=== PATIENT | female | born 1980 | race Caucasian/White ===

== ENCOUNTER 2019-02-11 | Inpatient (IN) | payer OTHER ==
[~2019-02-11] VITALS: Ht 162.6 cm; Wt 81.7 kg
[2019-02-11 02:23] VITALS: Ht 162.6 cm; Wt 81.7 kg
[2019-02-11 03:07] VITALS: BP 137/73; PULSE 77; RESP 18
[2019-02-11] MEDS ORDERED: ACETAMINOPHEN 325 MG TAB PO PRN (04:30)
[2019-02-11] MEDS ORDERED: ONDANSETRON 4 MG INJ IV PRN (04:30)
[2019-02-11] MEDS ORDERED: morphine 2 MG INJ IV PRN (04:30)
[2019-02-11] MEDS: DEXTROSE 5%-0.45% NACL 1,000 ML IV SCH ×3 (05:19→21:59)
[2019-02-11] MEDS: PANTOPRAZOLE 40 MG INJ IV SCH (05:25)
[2019-02-11] MEDS: CEFTRIAXONE 1 GM/50 ML (PMX) 50 ML IVPB SCH (05:25)
[2019-02-11 07:36] VITALS: BP 114/64; PULSE 70; RESP 16
--- NOTE | 2019-02-11 13:56 | QN ---
Documentation Comment seen and examined JESSIE VACA MD Feb 11, 2019 13:56
--- NOTE | 2019-02-11 14:15 | CONS ---
Assessment/Plan Assessment/Plan Hospital Course (Demo Recall) Summary Assessment and Plan: Assessment: Upper abdominal pain -R/o acalculous cholecystitis versus PUD versus gastritis versus other Abnormal UA- urine cx pending Plan: HIDA scan pending NPO after 0800 02/12/19 EGD 02/12/19 Endoscopy - risks/benefits/alternatives/indications of procedure and s edation/anesthesia discussed with patient who states understanding and gives informed consent to proceed. Continue PPI therapy HCG- negative on transfer paperwork Patient seen in collaboration with Dr. Hernandez CC: EASTON HERNANDEZ MD ; Consultation Date/Type/Reason Admit Date/Time Feb 11, 2019 at 02:07 Date of Consultation: Feb 11, 2019 Type of Consult GI Reason for Consultation upper abdominal pain Date/Time of Note DATE: 02/11/19 TIME: 14:03 Hx of Present Illness This is a 38 year old primarily Chinese-speaking female with PMH of H.pylori s/p treatment x3, who presented to [facility] with complaints of upper abdominal pain times 4 days Terry to [facility] for insurance reasons and at [facility] patient did have an abdominal ultrasound showing no gallstones identified, mild gallbladder wall thickening, pericholecystic fluid and positive sonographic Garcia sign could suggest an acalculous cholecystitis, no significant findings on CBC or CMP. Time evaluation patient denies nausea/vomiting she complains of upper abdominal pain worse with palpation she also notes pain is worse after eating not improved by anything in particular. She denies hematemesis, hematochezia, melena, constip ation, or diarrhea. Despite being treated for H. pylori multiple occasions patient states she has never had an upper endoscopy. Review of Systems: A 12 system, review was conducted and is negative except as noted in the HPI or here. Past Medical History Medications Current Medications Pantoprazole (Protonix Iv) 40 mg DAILY@06 IV Last administered on 02/11/19at 05:25; Admin Dose 40 MG; Start 02/11/19 at 06:00 Ceftriaxone Sodium 50 ml @ 100 mls/hr Q24H IVPB Last administered on 02/11/19at 05:25; Admin Dose 100 MLS/HR; Start 02/11/19 at 06:00 Acetaminophen (Tylenol Tab) 650 mg Q6H PRN PO MILD PAIN(1-3)OR ELEVATED TEMP; Start 02/11/19 at 04:30 Ondansetron HCl (Zofran Inj) 4 mg Q4H PRN IV NAUSEA AND/OR VOMITING; Start 02/11/19 at 04:30 Morphine Sulfate (morphine) 2 mg Q6 PRN IV SEVERE PAIN LEVEL 7-10; Start 02/11/19 at 04:30 Dextrose/Sodium Chloride 1,000 ml @ 70 mls/hr [id number] IV Last administered on 02/11/19at 05:19; Admin Dose 70 MLS/HR; Start 02/11/19 at 04:30 Allergies: Coded Allergies: No Known Allergies (Verified Allergy, Unknown, 02/11/19) Social History Smoking Status: Never smoker Exam/Review of Systems Exam Vitals Vital Signs Date Temp Pulse Resp B/P (MAP) Pulse Ox O2 O2 Flow FiO2 Time Delivery Rate 02/11/19 98.4 70 16 114/64 99 07:36 (81) Constitutional: alert, oriented Psych: no complaints, nl mood/affect Head: normocephalic, atraumatic Eyes: nl conjunctiva ENMT: nl external ears & nose, nl lips & teeth Neck: supple, non-tender Respiratory: clear to auscultation, normal air movement Cardiovascular: regular rate and rhythm, nl pulses Gastrointestinal: soft, bowel sounds, tender (upper abd) Musculoskeletal: nl extremities to inspection Extremities: normal pulses Skin: nl turgor Results Result Diagram: 02/11/19 0750 02/11/19 0750 Results 24hrs Laboratory Tests Test 02/11/19 07:50 White Blood Count 7.4 Red Blood Count 4.25 Hemoglobin 12.6 Hematocrit 37.8 Mean Corpuscular Volume 88.9 Mean Corpuscular Hemoglobin 29.6 Mean Corpuscular Hemoglobin Concent 33.3 Red Cell Distribution Width 13.2 Platelet Count 303 Mean Platelet Volume 10.5 H Immature Granulocytes % 0.300 Neutrophils % 56.0 Lymphocytes % 32.3 Monocytes % 8.6 Eosinophils % 2.0 Basophils % 0.8 Nucleated Red Blood Cells % 0.0 Immature Granulocytes # 0.020 Neutrophils # 4.2 Lymphocytes # 2.4 Monocytes # 0.6 Eosinophils # 0.2 Basophils # 0.1 Nucleated Red Blood Cells # 0.0 Sodium Level 144 Potassium Level 3.8 Chloride Level 108 Carbon Dioxide Level 27 Anion Gap 9 Blood Urea Nitrogen 8 Creatinine 0.53 Est Glomerular Filtrat Rate mL/min > 60 Glucose Level 105 Calcium Level 8.7 Total Bilirubin 0.4 Direct Bilirubin 0.00 Indirect Bilirubin 0.4 Aspartate Amino Transf (AST/SGOT) 19 Alanine Aminotransferase (ALT/SGPT) 18 Alkaline Phosphatase 62 Total Protein 7.2 Albumin 3.9 Globulin 3.30 H Albumin/Globulin Ratio 1.18 Medications Medication Current Medications Pantoprazole (Protonix Iv) 40 mg DAILY@06 IV Last administered on 02/11/19at 05 :25; Admin Dose 40 MG; Start 02/11/19 at 06:00 Ceftriaxone Sodium 50 ml @ 100 mls/hr Q24H IVPB Last administered on 02/11/19at 05:25; Admin Dose 100 MLS/HR; Start 02/11/19 at 06:00 Acetaminophen (Tylenol Tab) 650 mg Q6H PRN PO MILD PAIN(1-3)OR ELEVATED TEMP; Start 02/11/19 at 04:30 Ondansetron HCl (Zofran Inj) 4 mg Q4H PRN IV NAUSEA AND/OR VOMITING; Start 02/11/19 at 04:30 Morphine Sulfate (morphine) 2 mg Q6 PRN IV SEVERE PAIN LEVEL 7-10; Start 02/11/19 at 04:30 Dextrose/Sodium Chloride 1,000 ml @ 70 mls/hr [id number] IV Last administered on 02/11/19at 05:19; Admin Dose 70 MLS/HR; Start 02/11/19 at 04:30 ALIE PINEDA Feb 11, 2019 14:13
[2019-02-11 14:26] VITALS: BP 133/79; PULSE 79; RESP 16
--- NOTE | 2019-02-11 14:36 | HP ---
DATE OF ADMISSION: 02/11/2019 CHIEF COMPLAINT: Abdominal pain. HISTORY OF PRESENT ILLNESS: A 38-year-old female with a past medical history of Helicobacter pylori infection x3 for the last few years. The patient said that she was treated in the past 3 times. The patient had blood test, never had endoscopy. The patient said she came to the Emergency Department at [facility] since she was having right upper quadrant epigastric pain for the last 5 days. It was burning in nature, does not have any association with food. Denied any episodes of nausea o r vomiting. Denied any hematemesis, any melena, any bright red per rectum. The patient had vital si gns there, showed blood pressure 149/80. LFTs were within normal limit. White count was within norm al limits. The patient had a right upper quadrant ultrasound that showed a positive Garcia sign with gallbladder wall thickening. Patient was transferred due to acute cholecystitis. Patient also foun d to have UTI with a positive UA, however the patient is currently on , the patient denies dysur ia, any urgency, frequency. PAST MEDICAL HISTORY: History of Helicobacter pylori, treated x3 in the past. ALLERGIES: None. PAST SURGICAL HISTORY: None. MEDICATIONS: Taken at home-none. SOCIAL HISTORY: Denies any history of smoking, alcohol or any drug use. REVIEW OF SYSTEMS: The patient complained of right upper quadrant epigastric pain for the last 3 to 4 days. Denied any nausea, vomiting. Denied any hematemesis, any melena, any bright red blood per r ectum. Denies any diarrhea. Denies any fevers and chills. Denied any headache, any blurry vision, denied any focal neurological deficit. Denied any urinary symptoms. PHYSICAL EXAMINATION: VITAL SIGNS: Currently, blood pressure 114/64, afebrile, heart rate 70, saturating 99%. GENERAL: The patient is awake, alert, oriented, does not appear in acute distress. HEENT: Pupils equal, round, react to light. No scleral icterus. NECK: Supple, no JVD. HEART: Regular rate and rhythm. LUNGS: Clear to auscultate bilaterally. ABDOMEN: Some very mild tenderness present in the right upper quadrant region. EXTREMITIES: No clubbing, cyanosis, or edema. LABORATORY DATA: Shows BMP within normal limit. ALT was 19, AST 18, lipase 28, alkaline phosphatase 66. UA had showed large blood, positive nitrite, 1 to 2 WBCs and RBCs. Abdominal ultrasound there had showed a positive Garcia sign. Ultrasound with gallbladder wall thickening. ASSESSMENT AND PLAN: This is a 38-year-old female who presented with: 1. Abdominal pain, right upper quadrant with some abdominal bloating. History of Helicobacter pylor i in the past; however, on the ultrasound at [facility], the patient had positive Garcia sig n concerning for acute cholecystitis. 2. Urinary tract infection. 3. Menses. PLAN: At this period of time, the patient is admitted to med/surg. The patient is continued on Roce phin, pain medicine, Zofran and IV Protonix. Will call also GI consultation and surgery consultation with Dr. Rodriguez. Rest of the treatment will depend on the patient's hospitalization course. Dictated By: JESSIE GRADY/LEANDER Conf#: [id number] DID#: [id number] CC: ADIN REY MD;*End*
--- NOTE | 2019-02-11 16:51 | CONS ---
Assessment/Plan Assessment/Plan Hospital Course (Demo Recall) 1. Abdominal pain: DDX: Acalculous cholecystitis versus PUD versus recurrent H pylori infection versus gastritis versus other other: Ultrasound finding of mild gallbladder wall thickening with pericholecystic fluid and positive sonographic Garcia's; HIDA noted negative -No surgical intervention necessary at this time -GI > endoscopy pending tomorrow -Pain management 2. UTI: -abx per sensitivity -frequent bladder emptying/cath care 3. Obesity BMI: 31 -diet and exercise optimization -encourage weight loss Thank you. Patient seen and examined in collaboration with Dr. Pablo Rodriguez. Consultation Date/Type/Reason Admit Date/Time Feb 11, 2019 at 02:07 Date of Consultation: Feb 11, 2019 Type of Consult Surgical Reason for Consultation Abdominal pain Requesting Provider: JESSIE VACA MD Date/Time of Note DATE: 02/11/19 TIME: 16:44 Hx of Present Illness Jayda Calderon is a 38-year-old woman with past medical history of H. pylori infection multiple times for the last few years, who presented to outside hospital with complaints of bilateral upper quadrant pain times 5 days. Pain begins after she has food, intermittent and sharp in nature. She denies fevers, chills, congested cough, chest pain, palpitations, nausea, vomiting, hematemesis, hematochezia, melena, skin changes. Ultrasound of the abdomen performed at outside hospital identified mild gallbladder wall thickening with pericholecystic fluid and positive sonographic Garcia's sign suggestive of a calculus cholecystitis. Laboratory findings were unremarkable. General surgery was asked to evaluate. 12 point review of systems was performed and is negative except for as stated in HPI. Past Medical History As above Medications Current Medications Pantoprazole (Protonix Iv) 40 mg DAILY@06 IV Last administered on 02/11/19at 05:25; Admin Dose 40 MG; Start 02/11/19 at 06:00 Ceftriaxone Sodium 50 ml @ 100 mls/hr Q24H IVPB Last administered on 02/11/19at 05:25; Admin Dose 100 MLS/HR; Start 02/11/19 at 06:00 Acetaminophen (Tylenol Tab) 650 mg Q6H PRN PO MILD PAIN(1-3)OR ELEVATED TEMP; Start 02/11/19 at 04:30 Ondansetron HCl (Zofran Inj) 4 mg Q4H PRN IV NAUSEA AND/OR VOMITING; Start 02/11/19 at 04:30 Morphine Sulfate (morphine) 2 mg Q6 PRN IV SEVERE PAIN LEVEL 7-10; Start 01/21 01/07 at 04:30 Dextrose/Sodium Chloride 1,000 ml @ 70 mls/hr [id number] IV Last administered on 02/11/19at 05:19; Admin Dose 70 MLS/HR; Start 02/11/19 at 04:30 Allergies: Coded Allergies: No Known Allergies (Verified Allergy, Unknown, 02/11/19) Past Surgical History Past Surgical Hx: no surgical history Family History Significant Family History: no pertinent family hx Social History Alcohol Use: none Smoking Status: Never smoker Drug Use: none Exam/Review of Systems Exam Vitals Vital Signs Date Temp Pulse Resp B/P (MAP) Pulse Ox O2 O2 Flow FiO2 Time Delivery Rate 02/11/19 98.6 79 16 133/79 98 14:26 (97) Constitutional: alert, oriented Psych: nl mood/affect; No anxiety Head: normocephalic, atraumatic Eyes: nl conjunctiva, nl lids, nl sclera ENMT: nl external ears & nose, nl lips & teeth, mucosa pink and moist Neck: supple, non-tender; No jvd Respiratory: normal air movement; No congested cough Cardiovascular: regular rate and rhythm; No edema Gastrointestinal: soft, non-tender, other (Negative Garcia's by palpation); No distended Genitourinary - Female: nl external genitalia Musculoskeletal: nl extremities to inspection, nl gait and stance Extremities: normal pulses Neurological: nl mental status, nl speech, nl strength Skin: No rash or lesions Lymph: nl lymph nodes Results Result Diagram: 02/11/19 0750 02/11/19 0750 Results 24hrs Laboratory Tests Test 02/11/19 07:50 White Blood Count 7.4 Red Blood Count 4.25 Hemoglobin 12.6 Hematocrit 37.8 Mean Corpuscular Volume 88.9 Mean Corpuscular Hemoglobin 29.6 Mean Corpuscular Hemoglobin Concent 33.3 Red Cell Distribution Width 13.2 Platelet Count 303 Mean Platelet Volume 10.5 H Immature Granulocytes % 0.300 Neutrophils % 56.0 Lymphocytes % 32.3 Monocytes % 8.6 Eosinophils % 2.0 Basophils % 0.8 Nucleated Red Blood Cells % 0.0 Immature Granulocytes # 0.020 Neutrophils # 4.2 Lymphocytes # 2.4 Monocytes # 0.6 Eosinophils # 0.2 Basophils # 0.1 Nucleated Red Blood Cells # 0.0 Sodium Level 144 Potassium Level 3.8 Chloride Level 108 Carbon Dioxide Level 27 Anion Gap 9 Blood Urea Nitrogen 8 Creatinine 0.53 Est Glomerular Filtrat Rate mL/min > 60 Glucose Level 105 Calcium Level 8.7 Total Bilirubin 0.4 Direct Bilirubin 0.00 Indirect Bilirubin 0.4 Aspartate Amino Transf (AST/SGOT) 19 Alanine Aminotransferase (ALT/SGPT) 18 Alkaline Phosphatase 62 Total Protein 7.2 Albumin 3.9 Globulin 3.30 H Albumin/Globulin Ratio 1.18 Medications Medication Current Medications Pantoprazole (Protonix Iv) 40 mg DAILY@06 IV Last administered on 02/11/19at 05:25; Admin Dose 40 MG; Start 02/11/19 at 06:00 Ceftriaxone Sodium 50 ml @ 100 mls/hr Q24H IVPB Last administered on 02/11/19at 05:25; Admin Dose 100 MLS/HR; Start 02/11/19 at 06:00 Acetaminophen (Tylenol Tab) 650 mg Q6H PRN PO MILD PAIN(1-3)OR ELEVATED TEMP; Start 02/11/19 at 04:30 Ondansetron HCl (Zofran Inj) 4 mg Q4H PRN IV NAUSEA AND/OR VOMITING; Start 02/11/19 at 04:30 Morphine Sulfate (morphine) 2 mg Q6 PRN IV SEVERE PAIN LEVEL 7-10; Start 02/11/19 at 04:30 Dextrose/Sodium Chloride 1,000 ml @ 70 mls/hr [id number] IV Last administered on 02/11/19at 05:19; Admin Dose 70 MLS/HR; Start 02/11/19 at 04:30 JUWAN CRAWFORD NP Feb 11, 2019 16:51
[2019-02-11 19:55] VITALS: BP 113/59; PULSE 76; RESP 18
[2019-02-12] VITALS (9 sets, daily range): BP systolic 112–150; BP diastolic 56–96; PULSE 62–84; RESP 16–18
[2019-02-12] MEDS: PANTOPRAZOLE 40 MG INJ IV SCH (06:22)
[2019-02-12] MEDS: CEFTRIAXONE 1 GM/50 ML (PMX) 50 ML IVPB SCH (06:22)
[2019-02-12] MEDS: DEXTROSE 5%-0.45% NACL 1,000 ML IV SCH ×3 (09:06→23:24)
--- NOTE | 2019-02-12 12:26 | PN ---
Date/Time of Note Date/Time of Note DATE: 02/12/19 TIME: 12:25 Assessment/Plan Lines/Catheters IV Catheter Type (from [facility]): Peripheral IV Salcedo in Place (from [facility]): No Assessment/Plan Chief Complaint/Hosp Course 1. Abdominal pain: DDX: Acalculous cholecystitis versus PUD versus recurrent H pylori infection versus gastritis versus other other: Ultrasound finding of mild gallbladder wall thickening with pericholecystic fluid and positive sonographic Garcia's; HIDA noted negative; improved -No surgical intervention necessary at this time -GI > endoscopy pending today -Pain management 2. UTI: -abx per sensitivity -frequent bladder emptying/cath care 3. Obesity BMI: 31 -diet and exercise optimization -encourage weight loss Thank you. Patient seen and examined in collaboration with Dr. Pablo Rodriguez. Subjective 24 Hr Interval Summary Abdominal pain much improved. Pending endoscopy today. No fevers, chills, sob, congested cough, cp, palpitations, peters, dizziness, nausea, vomiting, diarrhea, dysuria. Exam/Review of Systems Vital Signs Vitals Vital Signs Date Temp Pulse Resp B/P (MAP) Pulse Ox O2 O2 Flow FiO2 Time Delivery Rate 02/12/19 98.8 65 18 113/63 98 07:59 (80) Intake and Output 02/11/19 02/11/19 02/12/19 1414:59 22:59 06:59 IntakeIntake Total 1800 ml 610 ml BalanceBalance 1800 ml 610 ml Exam Free Text/Dictation Constitutional: alert, oriented Psych: nl mood/affect; No anxiety Head: normocephalic, atraumatic Eyes: nl conjunctiva, nl lids, nl sclera ENMT: nl external ears & nose, nl lips & teeth, mucosa pink and moist Neck: supple, non-tender; No jvd Respiratory: normal air movement; No congested cough Cardiovascular: regular rate and rhythm; No edema Gastrointestinal: soft, non-tender, other (Negative Garcia's by palpation); No distended Genitourinary - Female: nl external genitalia Musculoskeletal: nl extremities to inspection, nl gait and stance Extremities: normal pulses Neurological: nl mental status, nl speech, nl strength Skin: No rash or lesions Lymph: nl lymph nodes Results Result Diagram: 02/11/19 0750 02/12/19 0511 JUWAN CRAWFORD NP Feb 12, 2019 12:26
--- NOTE | 2019-02-12 13:06 | PN ---
Date/Time of Note Date/Time of Note DATE: 02/12/19 TIME: 13:06 Assessment/Plan VTE Prophylaxis Risk score (from Ns)>0 risk: 2 SCD applied (from Ns): No SCD contraindicated: low risk/ambulating Pharmacological prophylaxis: NA/contraindicated Pharm contraindication: low risk/ambulating Lines/Catheters IV [facility] Type [facility] Peripheral IV Urinary Cath still in place: No Assessment/Plan Assessment/Plan is is a 38-year-old female who presented with: 1. Abdominal pain, right upper quadrant with some abdominal bloating. History of Helicobacter pylori in the past; however, on the ultrasound at [facility], the patient had positive Garcia sign concerning for acute cholecystitis.HIDA negative, pending EGD today 2. Urinary tract infection. PLAN - EGD today - cw rocephin - iv fluids - PPI Result Diagram: 02/11/19 0750 02/12/19 0511 Results 24hrs Laboratory Tests Test 02/12/19 05:11 Sodium Level 143 Potassium Level 4.2 Chloride Level 108 Carbon Dioxide Level 28 Anion Gap 7 Blood Urea Nitrogen 7 Creatinine 0.49 Est Glomerular Filtrat Rate mL/min > 60 Glucose Level 100 Calcium Level 9.1 Phosphorus Level 3.7 Magnesium Level 2.1 Total Bilirubin 0.3 Direct Bilirubin 0.00 Indirect Bilirubin 0.3 Aspartate Amino Transf (AST/SGOT) 20 Alanine Aminotransferase (ALT/SGPT) 27 Alkaline Phosphatase 57 Total Protein 6.7 Albumin 3.7 Globulin 3.00 Albumin/Globulin Ratio 1.23 Subjective 24 Hr Interval Summary Free Text/Dictation feels better today HIDA neg EGD today Exam/Review of Systems Exam Vitals Vital Signs Date Temp Pulse Resp B/P (MAP) Pulse Ox O2 O2 Flow FiO2 Time Delivery Rate 02/12/19 98.8 65 18 113/63 98 07:59 (80) Intake and Output 02/11/19 02/11/19 02/12/19 1515:00 23:00 07:00 IntakeIntake Total 1800 ml 610 ml BalanceBalance 1800 ml 610 ml Exam GENERAL: The patient is awake, alert, oriented, does not appear in acute distress. HEENT: Pupils equal, round, react to light. No scleral icterus. NECK: Supple, no JVD. HEART: Regular rate and rhythm. LUNGS: Clear to auscultate bilaterally. ABDOMEN: Some very mild tenderness present in the right upper quadrant region. EXTREMITIES: No clubbing, cyanosis, or edema. Results Results 24hrs Laboratory Tests Test 02/12/19 05:11 Sodium Level 143 Potassium Level 4.2 Chloride Level 108 Carbon Dioxide Level 28 Anion Gap 7 Blood Urea Nitrogen 7 Creatinine 0.49 Est Glomerular Filtrat Rate mL/min > 60 Glucose Level 100 Calcium Level 9.1 Phosphorus Level 3.7 Magnesium Level 2.1 Total Bilirubin 0.3 Direct Bilirubin 0.00 Indirect Bilirubin 0.3 Aspartate Amino Transf (AST/SGOT) 20 Alanine Aminotransferase (ALT/SGPT) 27 Alkaline Phosphatase 57 Total Protein 6.7 Albumin 3.7 Globulin 3.00 Albumin/Globulin Ratio 1.23 Medications Medication Current Medications Pantoprazole (Protonix Iv) 40 mg DAILY@06 IV Last administered on 02/12/19at 06:22; Admin Dose 40 MG; Start 02/11/19 at 06:00 Ceftriaxone Sodium 50 ml @ 100 mls/hr Q24H IVPB Last administered on 02/12/19at 06:22; Admin Dose 100 MLS/HR; Start 02/11/19 at 06:00 Acetaminophen (Tylenol Tab) 650 mg Q6H PRN PO MILD PAIN(1-3)OR ELEVATED TEMP; Start 02/11/19 at 04:30 Ondansetron HCl (Zofran Inj) 4 mg Q4H PRN IV NAUSEA AND/OR VOMITING; Start 02/11/19 at 04:30 Morphine Sulfate (morphine) 2 mg Q6 PRN IV SEVERE PAIN LEVEL 7-10; Start 02/11/19 at 04:30 Dextrose/Sodium Chloride 1,000 ml @ 70 mls/hr [id number] IV Last administered on 02/12/19at 13:03; Admin Dose 70 MLS/HR; Start 02/11/19 at 04:30 JESSIE VACA MD Feb 12, 2019 13:06
--- NOTE | 2019-02-12 14:25 | PREAC ---
Date/Time of Note Date/Time of Note DATE: 02/12/19 TIME: 14:24 Anesthesia Eval and Record Evaluation Time Pre-Procedure Interview DATE: 02/12/19 TIME: 14:24 Age 38 Sex female NPO: 8 hrs Preoperative diagnosis epigastric pain Planned procedure EGD Past Medical History Past Medical History: Includes GI: Obesity, Other (H. pylori) Surgery & Anesthesia Issues No known issue Meds Anticoagulation: No Beta Ezekiel within 24 hr: No Reason Beta Ezekiel not given: Pt. not on B-Ezekiel Current Medications Pantoprazole (Protonix Iv) 40 mg DAILY@06 IV Last administered on 02/12/19at 06:22; Admin Dose 40 MG; Start 02/11/19 at 06:00 Ceftriaxone Sodium 50 ml @ 100 mls/hr Q24H IVPB Last administered on 02/12/19at 06:22; Admin Dose 100 MLS/HR; Start 02/11/19 at 06:00 Acetaminophen (Tylenol Tab) 650 mg Q6H PRN PO MILD PAIN(1-3)OR ELEVATED TEMP; Start 02/11/19 at 04:30 Ondansetron HCl (Zofran Inj) 4 mg Q4H PRN IV NAUSEA AND/OR VOMITING; Start 02/11/19 at 04:30 Morphine Sulfate (morphine) 2 mg Q6 PRN IV SEVERE PAIN LEVEL 7-10; Start 02/11/19 at 04:30 Dextrose/Sodium Chloride 1,000 ml @ 70 mls/hr [id number] IV Last administered on 02/12/19at 13:03; Admin Dose 70 MLS/HR; Start 02/11/19 at 04:30 Meds reviewed: Yes Allergies Coded Allergies: No Known Allergies (Verified Allergy, Unknown, 02/11/19) Allergies Reviewed: Yes Labs/Studies Labs Reviewed: Reviewed by anesthesiologist Result Diagram: 02/11/19 0750 02/12/19 0511 Laboratory Tests 02/12/19 05:11 test: Negative Pre-procedure Exam Last vitals Vital Signs Date Temp Pulse Resp B/P (MAP) Pulse Ox O2 O2 Flow FiO2 Time Delivery Rate 02/12/19 98.5 68 18 119/69 97 13:51 (86) Airway: Adequate mouth opening, Adequate thyromental dist Mallampati: Mallampati II Teeth: Normal Lung: Normal Heart: Normal ASA Physical Status ASA physical status: 2 Emergency: None Planned Anesthetic General/MAC: Mask Planned Pain Management Parenteral pain med Pre-operative Attestations Prior to commencing anesthesia and surgery, the patient was re-evaluated, there was verification of: *The patient's identity *The results of appropriate recent lab work and preoperative vital signs *The above evaluation not changing prior to induction *Anesthetic plan, risk benefits, alternative and complications discussed with patient/family; questions answered; patient/family understands, accepts and wishes to proceed. Parts Runner used LESTER BACH MD Feb 12, 2019 14:25
[2019-02-12] MEDS ORDERED: ONDANSETRON 4 MG INJ IV PRN (14:30)
[2019-02-12] MEDS ORDERED: PROPOFOL 20 ML ONE ×2 (14:58→15:42)
[2019-02-12] MEDS ORDERED: LIDOCAINE 2% (SDV) 5 ML INJ ONE (14:58)
--- NOTE | 2019-02-12 15:01 | PAC ---
Date/Time of Note Date/Time of Note DATE: 02/12/19 TIME: 15:00 Post-Anesthesia Notes Post-Anesthesia Note Last documented vital signs Vital Signs Date Temp Pulse Resp B/P (MAP) Pulse Ox O2 O2 Flow FiO2 Time Delivery Rate 02/12/19 99.0 84 16 150/96 100 Room Air 14:28 (114) Activity: WNL Respiratory function: WNL Cardiovascular function: WNL Mental status: Baseline Pain reasonably controlled: Yes Hydration appropriate: Yes Nausea/Vomiting absent: Yes Comments BP: 90/60 HR: 78 RR: 15 T: 98 SaO2: 100% LESTER BACH MD Feb 12, 2019 15:01
--- NOTE | 2019-02-12 15:39 | PAC ---
Date/Time of Note Date/Time of Note DATE: 02/12/19 TIME: 15:38 Post-Anesthesia Notes Post-Anesthesia Note Last documented vital signs Vital Signs Date Temp Pulse Resp B/P (MAP) Pulse Ox O2 O2 Flow FiO2 Time Delivery Rate 02/12/19 99.0 84 16 150/96 100 Room Air 14:28 (114) Activity: WNL Respiratory function: WNL Cardiovascular function: WNL Mental status: Baseline Pain reasonably controlled: Yes Hydration appropriate: Yes Nausea/Vomiting absent: Yes Comments BP: 126/68 HR: 78 RR: 15 T: 98 SaO2: 99% LESTER BACH MD Feb 12, 2019 15:39
--- NOTE | 2019-02-12 15:57 | HPN ---
Date/Time of Note Date/Time of Note DATE: 02/12/19 TIME: 15:57 Interval H&P Admission Note Pt. seen H&P reviewed: No system changes EASTON TUCKER MD Feb 12, 2019 15:57
[2019-02-13 02:00] VITALS: BP 108/58; PULSE 91; RESP 18
[2019-02-13] MEDS: DEXTROSE 5%-0.45% NACL 1,000 ML IV SCH (05:01)
[2019-02-13] MEDS: CEFTRIAXONE 1 GM/50 ML (PMX) 50 ML IVPB SCH (05:56)
[2019-02-13] MEDS: PANTOPRAZOLE 40 MG INJ IV SCH (05:56)
[2019-02-13 08:03] VITALS: BP 106/57; PULSE 65; RESP 16
--- NOTE | 2019-02-13 10:19 | PDOCDIS ---
Discharge Instructions DIAGNOSIS Discharge Diagnosis mild gastritis UTI CONDITION Vaagn4Ct Patient Condition: [id number] Fair HOME CARE INSTRUCTIONS: [id number] Diet Instructions: [id number] Reduced Calorie ACTIVITY: [id number] Activity Restrictions: [id number] Slowly Increase Activity Rest between Activity Avoid heavy lifting FOLLOW UP/APPOINTMENTS Follow-up Plan F/U GI IN 1 WEEK FOR BIOPSY RESULTS FU PCP in 1 week JESSIE VACA MD Feb 13, 2019 10:19
[2019-02-13] MEDS ORDERED: CIPR-193 PO (10:20)
[2019-02-13] MEDS ORDERED: FAMO20TA18 PO (10:20)
--- NOTE | 2019-02-13 14:54 | PN ---
Date/Time of Note Date/Time of Note DATE: 02/13/19 TIME: 14:53 Assessment/Plan Lines/Catheters IV Catheter Type (from [facility]): Peripheral IV Salcedo in Place (from [facility]): No Assessment/Plan Chief Complaint/Hosp Course 1. Abdominal pain: DDX: Acalculous cholecystitis versus PUD versus recurrent H pylori infection versus gastritis versus other other: Ultrasound finding of mild gallbladder wall thickening with pericholecystic fluid and positive sonographic Garcia's; HIDA noted negative; improved -No surgical intervention necessary at this time -GI > status post endoscopy: Pathology: Chronic gastritis; negative H. pylori > GI follow-up -Pain management 2. UTI: -abx per sensitivity -frequent bladder emptying/cath care 3. Obesity BMI: 31 -diet and exercise optimization -encourage weight loss Thank you. Patient seen and examined in collaboration with Dr. Pablo Rodriguez. Subjective 24 Hr Interval Summary Feels well. Tolerating diet. No fevers, chills, sob, congested cough, cp, palpitations, peters, dizziness, nausea, vomiting, diarrhea, dysuria. Exam/Review of Systems Vital Signs Vitals Vital Signs Date Temp Pulse Resp B/P (MAP) Pulse Ox O2 O2 Flow FiO2 Time Delivery Rate 02/13/19 98.2 65 16 106/57 98 08:03 (73) 02/13/19 Room Air 02:00 Intake and Output 02/12/19 02/12/19 02/13/19 1515:00 23:00 07:00 IntakeIntake Total 440 ml 540 ml 750 ml BalanceBalance 440 ml 540 ml 750 ml Exam Free Text/Dictation Constitutional: alert, oriented Psych: nl mood/affect; No anxiety Head: normocephalic, atraumatic Eyes: nl conjunctiva, nl lids, nl sclera ENMT: nl external ears & nose, nl lips & teeth, mucosa pink and moist Neck: supple, non-tender; No jvd Respiratory: normal air movement; No congested cough Cardiovascular: regular rate and rhythm; No edema Gastrointestinal: soft, non-tender, other (Negative Garcia's by palpation); No distended Genitourinary - Female: nl external genitalia Musculoskeletal: nl extremities to inspection, nl gait and stance Extremities: normal pulses Neurological: nl mental status, nl speech, nl strength Skin: No rash or lesions Lymph: nl lymph nodes Results Result Diagram: 02/11/19 0750 02/12/19 0511 JUWAN CRAWFORD NP Feb 13, 2019 14:54
--- NOTE | 2019-02-13 15:13 | DS ---
DATE OF ADMISSION: 02/11/2019 DATE OF DISCHARGE: 02/13/2019 HISTORY OF PRESENTING ILLNESS AND HOSPITAL COURSE: This is a 38-year-old female with past medical hi story of Helicobacter pylori for the last few years 3 times in the past, never had any endoscopy, cam e to the emergency department having right upper quadrant pain, epigastric pain for the last 5 days, burning in nature, does not have association with food, no nausea or vomiting. The patient was trans ferred from [facility] where had a right upper quadrant ultrasound that showed positive Murp hy sign with gallbladder wall thickening. The patient also was positive for UTI. The patient was tr ansferred to [facility] due to insurance reasons. The patient had HIDA scan here that showe d no evidence to suggest presence of common bile or cystic duct obstruction. The patient was seen by surgery consultation with Dr. Rodriguez and no surgical intervention necessary at this time. The dione ent was also started on IV Rocephin. Urine culture was negative. The patient was seen by GI consult ation, Dr. Hernandez, had endoscopy that showed some mild gastritis. H. pylori was negative. Currently , the patient is feeling much better. Abdominal pain is improved. Denies any episodes of nausea or vomiting. Stable to be discharged home. FINAL DISCHARGE DIAGNOSES: 1. Abdominal pain, right upper quadrant, some abdominal bloating, history of Helicobacter pylori in the past. HIDA is negative for any acute cholecystitis, status post EGD with mild gastritis. Helico bacter pylori negative. 2. Urinary tract infection. DISCHARGE CONDITION: Stable. DISCHARGE MEDICATIONS: 1. Pepcid 20 mg p.o. daily x30 days. 2. Cipro 250 mg p.o. b.i.d. for 3 days. DISCHARGE INSTRUCTIONS: The patient was instructed to follow up with PCP in 1 to 2 weeks. Follow up with GI, Dr. Hernandez, in 1 to 2 weeks. Return to ER if she has severe abdominal pain, nausea, vomiti ng, fevers or chills. Dictated By: JESSIE GRADY/LEANDER Conf#: [id number] DID#: [id number] CC: JER RODRIGUEZ MD; ADIN REY MD;*End*
== END 2019-02-13 14:50 | disposition home or self-care (01) | DRG 392 ==
LOC: 2NE 02:07
PROVIDERS: ADMIT Internal Medicine Nephrology; ATTEND Internal Medicine Nephrology
PROC: 0DB68ZX Excision of Stomach, Via Natural or Artificial Opening Endoscopic, Diagnostic (ICD-10-PCS; principal; 2019-02-12 17:00)
DX: R10.11 Right upper quadrant pain (principal); N39.0 Urinary tract infection, site not specified; R10.13 Epigastric pain; K29.70 Gastritis, unspecified, without bleeding; N94.89 Other specified conditions associated with female genital organs and menstrual cycle; E66.9 Obesity, unspecified; Z68.31 Body mass index [BMI] 31.0-31.9, adult
CPT/HCPCS: 78226; 80053; 83735; 84100; 85025; 87086; 88305; 88312; A9537; C9113; J0696; J2270; J7042